=== PATIENT | male | born 1995 | race Caucasian/White ===

== ENCOUNTER 2017-04-18 13:19 | Emergency (ER) | payer SELFPAY ==
[~2017-04-18] VITALS: Wt 77.1 kg
[~2017-04-18 13:19] MED LIST: AMOXICILLIN500 MG PO; FLONASE 0.05% 121 EA NAS; SINGULAIR10 M1 PO; ZYRTEC10 MG PO
[2017-04-18 13:57] LABS: BILIRUBIN NEGATIVE (NEGATIVE); BLOOD NEGATIVE (NEGATIVE); CLARITY CLEAR (CLEAR); COLOR YELLOW (YELLOW); GLUCOSE NEGATIVE (NEGATIVE); KETONE NEGATIVE (NEGATIVE); LEUKO ESTERASE NEGATIVE (NEGATIVE); NITRITE NEGATIVE (NEGATIVE); PH 5.5 (5.0-9.0); PROTEIN NEGATIVE (NEGATIVE); SPECIFIC GRAVITY <= 1.005 (1.005-1.030); UROBILINOGEN 0.2 E.U./dl (0.2-1.0)
[2017-04-18 14:04] LABS: RBC 0-2 rbc/hpf (0-2); URINE REFLEX COMMENT NO (NO)
[2017-04-18] MEDS ORDERED: NAPROSYN500 MG PO (15:43)
[2017-04-18] MEDS ORDERED: 'PARAFON FORTE500 M1 PO (15:43)
== END 2017-04-18 15:59 | disposition home or self-care (01) ==
LOC: ED 13:19
PROVIDERS: Nurse Practitioner Family
DX: M54.5 Low back pain (principal); Z88.1 Allergy status to other antibiotic agents

== ENCOUNTER 2017-05-21 13:55 | Emergency (ER) | payer BC ==
[~2017-05-21] VITALS: Wt 77.1 kg
[~2017-05-21 13:55] MED LIST changes: +'PARAFON FORTE500 M1 PO; +NAPROSYN500 MG PO
[2017-05-21 15:28] LABS: BASO % 0.3 % (0.0-1.0); EOS # 0.1 10*3/uL (0.0-0.4); EOS % 0.7 % (1.0-4.0); HEMATOCRIT 41.2 % (42.0-52.0); HEMOGLOBIN 14.7 g/dl (14.0-18.0); LYMPH # 2.2 10*3/uL (1.3-4.4); LYMPH % 23.8 % (27.0-41.0); MEAN CORPUSCULAR HGB 32.1 pg (27.0-31.0); MEAN CORPUSCULAR HGB CONC 35.7 g/dl (33.0-37.0); MEAN PLATELET VOLUME 9.5 fl (9.6-12.3); MONO # 0.7 10*3/uL (0.1-1.0); NEUT # 6.4 10*3/uL (2.3-7.9); PLATELET COUNT AUTOMATED 223 10*3/uL (130-400); RED BLOOD COUNT 4.58 10*6/uL (4.50-5.90); RED CELL DISTRI WIDTH 12.3 % (0-14.5); WHITE BLOOD COUNT 9.3 10*3/uL (4.8-10.8)
[2017-05-21 15:41] LABS: ALBUMIN 3.8 gm/dl (3.1-4.5); BILIRUBIN, TOTAL 0.4 mg/dl (0.2-1.0); BUN 6 mg/dl (7-24); CARBON DIOXIDE 28 mmol/L (21-32); CHLORIDE 107 mmol/L (98-107); EST GLOM FILT AFRICAN AMERICAN > 60 ml/min; GLUCOSE 82 mg/dL (65-99); POTASSIUM 4.1 mmol/L (3.5-5.1); SGOT/AST 14 IU/L (3-35); SGPT/ALT 18 U/L (12-78); SODIUM 140 mmol/L (136-145); TOTAL PROTEIN 6.7 gm/dL (6.4-8.2)
[2017-05-21 15:43] LABS: BILIRUBIN NEGATIVE (NEGATIVE); BLOOD TRACE-INTACT (NEGATIVE); CLARITY SL CLOUDY (CLEAR); COLOR YELLOW (YELLOW); GLUCOSE NEGATIVE (NEGATIVE); KETONE NEGATIVE (NEGATIVE); LEUKO ESTERASE NEGATIVE (NEGATIVE); NITRITE NEGATIVE (NEGATIVE); PROTEIN NEGATIVE (NEGATIVE); SPECIFIC GRAVITY 1.015 (1.005-1.030); UROBILINOGEN 0.2 E.U./dl (0.2-1.0)
[2017-05-21 15:56] LABS: ALKALINE PHOSPHATASE 69 U/L (45-117)
[2017-05-21 16:07] LABS: BACTERIA TRACE; EPITHELIAL CELLS 0-2; MUCOUS 1+; RBC 0-2 rbc/hpf (0-2)
== END 2017-05-21 17:16 | disposition left against medical advice (07) ==
LOC: ED 13:55
PROVIDERS: Physician Assistant
DX: R10.9 Unspecified abdominal pain (principal); R19.7 Diarrhea, unspecified; Z53.21 Procedure and treatment not carried out due to patient leaving prior to being seen by health care provider; F17.200 Nicotine dependence, unspecified, uncomplicated; Z88.1 Allergy status to other antibiotic agents

== ENCOUNTER 2017-11-14 15:45 | Emergency (ER) | payer BC ==
[~2017-11-14] VITALS: Ht 172.7 cm; Wt 86.2 kg
[2017-11-14] MEDS ORDERED: Motrin,Rufen800 MG PO (16:00)
[2017-11-14] MEDS ORDERED: AUGMENTIN 875875 MG PO (16:00)
== END 2017-11-14 16:04 | disposition home or self-care (01) ==
LOC: ED 15:45
DX: K08.89 Other specified disorders of teeth and supporting structures (principal); F17.200 Nicotine dependence, unspecified, uncomplicated; Z88.1 Allergy status to other antibiotic agents

== ENCOUNTER 2018-04-08 16:55 | Emergency (ER) | payer SELFPAY ==
[~2018-04-08] VITALS: Ht 175.2 cm; Wt 65.8 kg
[~2018-04-08 16:55] MED LIST changes: +AUGMENTIN 875875 MG PO; +Motrin,Rufen800 MG PO
[2018-04-08] MEDS ORDERED: PREDNISONE10 MG PO (16:58)
[2018-04-08] MEDS ORDERED: ROBITUSSIN DM 105 ML PO (16:58)
[2018-04-08] MEDS ORDERED: FLONASE ALLERG9.9 ML NAS (16:58)
[2018-04-08] MEDS ORDERED: CLARITIN10 MG PO (16:58)
[2018-04-08] MEDS ORDERED: PROAIR HFA8.5 GM INH (17:41)
== END 2018-04-08 18:14 | disposition home or self-care (01) ==
LOC: ED 16:55
DX: B34.9 Viral infection, unspecified (principal); Z88.1 Allergy status to other antibiotic agents

== ENCOUNTER 2018-09-12 18:32 | Emergency (ER) | payer BC ==
[~2018-09-12] VITALS: Ht 167.6 cm; Wt 63.5 kg
[~2018-09-12 18:32] MED LIST changes: +CLARITIN10 MG PO; +FLONASE ALLERG9.9 ML NAS; +PREDNISONE10 MG PO; +PROAIR HFA8.5 GM INH; +ROBITUSSIN DM 105 ML PO
[2018-09-12] MEDS ORDERED: FLONASE ALLERG9.9 ML NAS (18:40)
[2018-09-12] MEDS ORDERED: CLARITIN10 MG PO (18:40)
== END 2018-09-12 18:45 | disposition home or self-care (01) ==
LOC: ED 18:32
DX: R09.81 Nasal congestion (principal); R42 Dizziness and giddiness; Z88.1 Allergy status to other antibiotic agents

== ENCOUNTER 2019-01-13 11:33 | Emergency (ER) | payer SELFPAY ==
[~2019-01-13] VITALS: Ht 172.7 cm; Wt 63.5 kg
[2019-01-13 12:32] LABS: BASO % 0.4 % (0.0-1.0); EOS # 0.1 10*3/uL (0.0-0.4); EOS % 1.7 % (1.0-4.0); HEMOGLOBIN 15.7 g/dl (14.0-18.0); LYMPH # 1.3 10*3/uL (1.3-4.4); LYMPH % 25.4 % (27.0-41.0); MEAN CELL VOLUME 91.5 fl (80.0-94.0); MEAN CORPUSCULAR HGB 31.9 pg (27.0-31.0); MEAN CORPUSCULAR HGB CONC 34.9 g/dl (33.0-37.0); MEAN PLATELET VOLUME 9.7 fl (9.6-12.3); MONO # 0.6 10*3/uL (0.1-1.0); MONO % 12.1 % (3.0-9.0); NEUT # 3.2 10*3/uL (2.3-7.9); NEUT % 60.2 % (47.0-73.0); PLATELET COUNT AUTOMATED 202 10*3/uL (130-400); RED BLOOD COUNT 4.92 10*6/uL (4.50-5.90); RED CELL DISTRI WIDTH 12.5 % (0-14.5); WHITE BLOOD COUNT 5.3 10*3/uL (4.8-10.8)
[2019-01-13 12:56] LABS: ALBUMIN 3.8 gm/dl (3.1-4.5); ALKALINE PHOSPHATASE 74 U/L (45-117); BUN 9 mg/dl (7-24); CHLORIDE 107 mmol/L (98-107); CREATININE 0.85 mg/dL (0.70-1.30); LIPASE 143 U/L (73-393); POTASSIUM 3.8 mmol/L (3.5-5.1); SGOT/AST 10 IU/L (3-35); SGPT/ALT 15 U/L (12-78); SODIUM 141 mmol/L (136-145); TOTAL PROTEIN 6.9 gm/dL (6.4-8.2)
[2019-01-13 14:19] LABS: BILIRUBIN NEGATIVE (NEGATIVE); BLOOD NEGATIVE (NEGATIVE); CLARITY CLEAR (CLEAR); COLOR YELLOW (YELLOW); GLUCOSE NEGATIVE (NEGATIVE); KETONE NEGATIVE (NEGATIVE); LEUKO ESTERASE NEGATIVE (NEGATIVE); NITRITE NEGATIVE (NEGATIVE); PH 6.5 (5.0-9.0); SPECIFIC GRAVITY <= 1.005 (1.005-1.030); UROBILINOGEN 0.2 E.U./dl (0.2-1.0)
[2019-01-13 14:43] LABS: EPITHELIAL CELLS 0-2; RBC 0-2 rbc/hpf (0-2); WBC 0-2 wbc/hpf (0-5)
[2019-01-13] MEDS ORDERED: ZOFRAN4 MG PO (15:16)
[2019-02-27] MEDS ORDERED: ROBAXIN500 M1 PO (18:05)
[2019-02-27] MEDS ORDERED: PREDNISONE20 M1 PO (18:05)
== END 2019-01-13 15:18 | disposition home or self-care (01) ==
LOC: ED 11:33
PROVIDERS: Physician Assistant
DX: K52.9 Noninfective gastroenteritis and colitis, unspecified (principal); Z88.1 Allergy status to other antibiotic agents; Z79.899 Other long term (current) drug therapy; Z79.2 Long term (current) use of antibiotics

== ENCOUNTER 2021-06-09 08:35 | Emergency (ER) | payer OTHER ==
[~2021-06-09] VITALS: Wt 65.8 kg
[~2021-06-09 08:35] MED LIST changes: +PREDNISONE20 M1 PO; +ROBAXIN500 M1 PO; +ZOFRAN4 MG PO
[2021-06-09] MEDS ORDERED: ZOFRAN4 MG PO ×3 (09:27→09:37)
== END 2021-06-09 09:40 | disposition home or self-care (01) ==
LOC: ED 08:35
DX: B34.9 Viral infection, unspecified (principal); Z20.822 Contact with and (suspected) exposure to COVID-19; Z88.1 Allergy status to other antibiotic agents

== ENCOUNTER 2022-07-19 11:59 | Emergency (ER) | payer OTHER ==
[~2022-07-19] VITALS: Ht 172.7 cm; Wt 65.8 kg
[2022-07-19] MEDS ORDERED: AMOXICILLIN500 M2 PO (12:22)
== END 2022-07-19 12:40 | disposition home or self-care (01) ==
LOC: ED 11:59
DX: K02.9 Dental caries, unspecified (principal); Z79.899 Other long term (current) drug therapy; Z88.1 Allergy status to other antibiotic agents

== ENCOUNTER 2022-09-04 11:30 | Emergency (ER) | payer OTHER ==
[~2022-09-04] VITALS: Ht 170.2 cm; Wt 65.3 kg
[~2022-09-04 11:30] MED LIST changes: +AMOXICILLIN500 M2 PO
[2022-09-04] MEDS ORDERED: CEPACOL SORE T1 EACH MM (13:03)
[2022-09-04] MEDS ORDERED: MUCINEX D ER 61 EACH PO (13:03)
== END 2022-09-04 14:36 | disposition home or self-care (01) ==
LOC: ED 11:30
DX: U07.1 COVID-19 (principal); B34.9 Viral infection, unspecified; Z88.1 Allergy status to other antibiotic agents; Z79.899 Other long term (current) drug therapy; Z79.2 Long term (current) use of antibiotics